=== PATIENT | male | born 1995 | race African-American/Black ===

== ENCOUNTER 2018-12-01 16:47 | Emergency (ER) | payer SELFPAY ==
[~2018-12-01] VITALS: Ht 182.9 cm; Wt 86.4 kg
[2018-12-01] MEDS ORDERED: BACTRIM DS 8001 TAB PO (17:42)
[2018-12-01] MEDS ORDERED: CEPHALEXIN500 M1 PO (17:42)
[2018-12-01 17:58] VITALS: BP 112/82; PULSE 68; TEMP 98.2
== END 2018-12-01 18:00 | disposition home or self-care (01) ==
LOC: COL.ER 16:47
DX: L05.01 Pilonidal cyst with abscess (principal); F17.210 Nicotine dependence, cigarettes, uncomplicated